=== PATIENT | female | born 1940 | race Caucasian/White ===

== ENCOUNTER 2022-04-23 18:28 | Emergency (ER) | payer MEDICARE, BC ==
[2022-04-23 18:49] LABS: #Basophils 0.1 10x3/uL (0.0-0.2); #Eosinphils 0.6 10x3/uL (0.0-0.5); #Monocytes 1.4 10x3/uL (0.0-1.1); #Neutrophils 5.8 10x3/uL (1.5-8.4); %Basophils 0.8 % (0.0-2.0); %Eosinophils 5.9 % (0.0-6.0); %Lymphocytes 21.1 % (18.0-47.0); %Monocytes 13.7 % (0.0-10.0); %Neutrophils 58.3 % (40.0-75.0); Hemoglobin 15.1 g/dL (12.0-15.5); Mean Corpuscular HGB CONC 34.5 g/dL (32.0-36.0); Mean Corpuscular Hemoglobin 30.8 pg (27.0-33.0); Mean Corpuscular Volume 89.4 fl (81.6-98.3); Mean Platelet Volume 9.8 fl (7.4-10.4); Platelet Count 296 10x3/uL (150-450); RBC Distribution Width 13.4 % (11.5-14.5)
[2022-04-23 18:59] LABS: ALT (SGPT) 19 U/L (8-55); AST (SGOT) 19 U/L (5-34); Albumin 4.2 g/dL (3.4-4.8); Alkaline Phosphatase 85 U/L (40-110); Anion Gap 14 mmol/L (10-20); BUN (Urea Nitrogen) 24 mg/dL (9.8-20.1); Bilirubin, Total 0.5 mg/dL (0.2-1.2); Calc. Creatinine Clearance 0 mL/min (70-130); Calcium 9.9 mg/dL (7.8-10.44); Carbon Dioxide 22 mmol/L (23-31); Chloride 104 mmol/L (98-107); Estimated GFR 68; Globulin 2.8 g/dL (2.4-3.5); Glucose 113 mg/dL (83-110); Potassium 4.1 mmol/L (3.5-5.1); Sodium 136 mmol/L (136-145)
== END 2022-04-23 22:41 | disposition home or self-care (01) ==
LOC: CSHERS 18:28
DX: I48.91 Unspecified atrial fibrillation (principal); I10 Essential (primary) hypertension
CPT/HCPCS: 71045; 80053; 84484; 85025; 93005

== ENCOUNTER 2024-01-16 08:06 | Observation (INO) | payer MEDICARE, BC ==
[2024-01-16] MEDS ORDERED: Aspirin Chewable 81 MG TAB ONE (08:53)
[2024-01-16] MEDS ORDERED: Furosemide 40 MG (4 mL) VIAL ONE (08:53)
[2024-01-16] MEDS ORDERED: Nitroglycerin 2% Ointment 1 INCH/1 GM Packet ONE (08:53)
[2024-01-16 09:17] LABS: Hematocrit 40.9 % (34.9-44.5); Hemoglobin 14.3 g/dL (12.0-15.5); Mean Corpuscular Hemoglobin 32.4 pg (27.0-33.0); Mean Corpuscular Volume 92.5 fl (81.6-98.3); Mean Platelet Volume 10.1 fl (7.4-10.4); Platelet Count 285 10x3/uL (150-450); RBC Distribution Width 13.2 % (11.5-14.5); Red Blood Cell (RBC) Count 4.42 10x6/uL (3.90-5.03)
[2024-01-16 09:22] LABS: ALT (SGPT) 19 U/L (8-55); AST (SGOT) 18 U/L (5-34); Alkaline Phosphatase 99 U/L (40-110); Anion Gap 16 mmol/L (10-20); BUN (Urea Nitrogen) 19 mg/dL (9.8-20.1); Calc. Creatinine Clearance 0 mL/min (70-130); Calcium 9.7 mg/dL (7.8-10.44); Carbon Dioxide 25 mmol/L (23-31); Chloride 105 mmol/L (98-107); Estimated GFR 63; Globulin 2.7 g/dL (2.4-3.5); Glucose 117 mg/dL (83-110); Lipase 34 U/L (8-78); Potassium 4.6 mmol/L (3.5-5.1); Protein, Total 6.7 g/dL (5.8-8.1); Sodium 141 mmol/L (136-145)
[2024-01-16 09:23] LABS: Troponin I Less than 0.010 ng/mL (< 0.028)
[2024-01-16 09:27] LABS: MDiff Complete? YES
[2024-01-16 11:31] LABS: Band 2 % (5-11); Eosinophils 3 % (0-10); Lymphocytes 34 % (21-51); Monocytes 18 % (0-10); Neutrophil 43 % (42-75)
[2024-01-16 11:32] LABS: Platelet Adequacy Comment Appears Adequate; RBC Morph Comment Within Normal Limits
[2024-01-16 11:36] VITALS: BMI 26.9
[2024-01-16] MEDS ORDERED: Nitroglycerin 0.4 MG TAB (25 Tab Bottle) SL PRN (11:39)
[2024-01-16] MEDS ORDERED: Ondansetron ODT 4 MG TAB PO PRN (12:04)
[2024-01-16] MEDS ORDERED: Calcium Carbonate 500 MG ChewTAB PO PRN (12:04)
[2024-01-16] MEDS ORDERED: Ondansetron PF 4 MG/2 ML Vial IVP PRN (12:04)
[2024-01-16] MEDS ORDERED: Acetaminophen 325 MG TAB PO PRN (12:04)
[2024-01-16 12:29] LABS: Troponin I 0.013 ng/mL (< 0.028)
[2024-01-16] MEDS ORDERED: cloNIDine 0.1 MG TAB PO PRN (12:56)
[2024-01-16 15:14] LABS: Troponin I 0.014 ng/mL (< 0.028)
[2024-01-16] MEDS: Simvastatin 10 MG TAB PO SCH (19:59)
[2024-01-16] MEDS: Apixaban 5 MG TAB PO SCH (20:00)
[2024-01-16] MEDS: Sotalol HCl 80 MG TAB PO SCH (20:00)
[2024-01-16] MEDS: Ezetimibe 10 MG TAB PO SCH (20:04)
[2024-01-16] MEDS ORDERED: Apixaban 5 MG TAB PO SCH (21:00)
[2024-01-17 03:52] LABS: #Basophils 0.05 10x3/uL (0.0-0.2); #Monocytes 1.18 10x3/uL (0.0-1.1); %Basophils 0.8 % (0.0-2.0); %Lymphocytes 35.6 % (18.0-47.0); %Monocytes 19.8 % (0.0-10.0); %Neutrophils 38.6 % (40.0-75.0); Hematocrit 41.9 % (34.9-44.5); Hemoglobin 14.3 g/dL (12.0-15.5); Mean Corpuscular HGB CONC 34.1 g/dL (32.0-36.0); Mean Corpuscular Hemoglobin 31.7 pg (27.0-33.0); Mean Corpuscular Volume 92.9 fl (81.6-98.3); Mean Platelet Volume 10.1 fl (7.4-10.4); Platelet Count 271 10x3/uL (150-450); RBC Distribution Width 13.2 % (11.5-14.5); Red Blood Cell (RBC) Count 4.51 10x6/uL (3.90-5.03)
[2024-01-17 04:28] LABS: Anion Gap 14 mmol/L (10-20); BUN (Urea Nitrogen) 18 mg/dL (9.8-20.1); Calc. Creatinine Clearance 62 mL/min (70-130); Calcium 9.3 mg/dL (7.8-10.44); Carbon Dioxide 26 mmol/L (23-31); Chloride 103 mmol/L (98-107); Estimated GFR 69; Glucose 90 mg/dL (83-110); Potassium 3.9 mmol/L (3.5-5.1); Sodium 139 mmol/L (136-145)
[2024-01-17] MEDS ORDERED: Apixaban 2.5 MG TAB PO SCH (09:00)
[2024-01-17] MEDS ORDERED: Enoxaparin 40 MG (0.4 mL) SYRINGE SC SCH (09:00)
[2024-01-17] MEDS ORDERED: Amlodipine 5 MG TAB PO SCH (09:00)
[2024-01-17 09:42] VITALS: BP 139/67; TEMP 98.3
[2024-01-17] MEDS: Losartan 50 MG TAB PO SCH (09:47)
[2024-01-17] MEDS: Amlodipine 5 MG TAB PO SCH ×2 (09:47→09:48)
[2024-01-17] MEDS: Aspirin 81 mg Enteric Coated Tablet PO SCH (09:48)
== END 2024-01-17 11:04 | disposition home or self-care (01) ==
LOC: CSHERS 08:06 → CSHTELE 11:00
PROVIDERS: ADMIT Internal Medicine; ATTEND Internal Medicine
PROC: B246ZZZ Ultrasonography of Right and Left Heart (ICD-10-PCS; principal; 2024-01-16)
DX: R07.2 Precordial pain (principal); I48.0 Paroxysmal atrial fibrillation; I13.10 Hypertensive heart and chronic kidney disease without heart failure, with stage 1 through stage 4 chronic kidney disease, or unspecified chronic kidney disease; N18.2 Chronic kidney disease, stage 2 (mild); E78.5 Hyperlipidemia, unspecified; M10.9 Gout, unspecified; Z90.710 Acquired absence of both cervix and uterus; Z79.01 Long term (current) use of anticoagulants; Z90.49 Acquired absence of other specified parts of digestive tract; Z98.890 Other specified postprocedural states; Z88.5 Allergy status to narcotic agent; Z79.899 Other long term (current) drug therapy; Z79.82 Long term (current) use of aspirin
CPT/HCPCS: 36415; 71045; 80048; 80053; 83690; 83735; 83880; 84484; 85025; 85379; 93005; 93010; 93306; 96374; G0378; J1940